=== PATIENT | female | born 1980 | race Two or more races ===

== ENCOUNTER 2018-08-11 16:30 | Emergency (ER) | payer OTHER ==
--- NOTE | 2018-08-11 16:55 | ER Document Report ---
ED Medical Screen (RME) - General Chief Complaint: Vag Bleeding, +preg <12wks Stated Complaint: FALL/VAGINAL BLEEDING Time Seen by Provider: 08/11/18 16:50 Notes: 38-year-old female patient to the emergency department chief complaint of vaginal bleeding. Patient thinks that she is maybe 2-3 months . Fell off a ladder had approximately 2 feet high. Landed on her buttocks. Began having vaginal bleeding and cramping after that. Denies any other injuries at this time. Patient has been 6 times with 6 children. I have greeted and performed a rapid initial assessment of this patient. A comprehensive ED assessment and evaluation of the patient, analysis of test results and completion of the medical decision making process will be conducted by additional ED providers. TRAVEL OUTSIDE OF THE [place] IN LAST 30 DAYS: No - HPI Onset: Just prior to arrival Severity: Moderate - Related Data Allergies/Adverse Reactions: No Known Allergies Allergy (Unverified 08/11/18 16:34) Review of Systems - Review of Systems Notes: Review of systems positive for the following: Vaginal bleeding and cramping, positive Physical Exam - Vital signs Vitals: Temp Pulse Resp BP Pulse Ox 98.5 F 101 H 20 122/61 100 08/11/18 16:36 08/11/18 16:36 08/11/18 16:36 08/11/18 16:36 08/11/18 16:36 Interpretation: Normal - General General appearance: Appears well, Alert - HEENT Head: Normocephalic, Atraumatic Eyes: Normal Pupils: PERRL - Respiratory Respiratory status: No respiratory distress Chest status: Nontender Breath sounds: Normal Chest palpation: Normal - Cardiovascular Rhythm: Regular Heart sounds: Normal auscultation Murmur: No - Abdominal Inspection: Normal Distension: No distension Bowel sounds: Normal Tenderness: Nontender Organomegaly: No organomegaly - Back Back: Normal, Nontender - Extremities General upper extremity: Normal inspection, Nontender, Normal color, Normal ROM, Normal temperature General lower extremity: Normal inspection, Nontender, Normal color, Normal ROM, Normal temperature, Normal weight bearing. No: Treasure's sign - Neurological Neuro grossly intact: Yes Cognition: Normal Orientation: AAOx4 Dalton Coma Scale Eye Opening: Spontaneous Jhony Coma Scale Verbal: Oriented Jhony Coma Scale Motor: Obeys Commands Jhony Coma Scale Total: 15 Speech: Normal Motor strength normal: LUE, RUE, LLE, RLE Sensory: Normal - Psychological Associated symptoms: Normal affect, Normal mood - Skin Skin Temperature: Warm Skin Moisture: Dry Skin Color: Normal Course - Vital Signs Vital signs: Temp Pulse Resp BP Pulse Ox 98.5 F 101 H 20 122/61 100 08/11/18 16:36 08/11/18 16:36 08/11/18 16:36 08/11/18 16:36 08/11/18 16:36
[2018-08-11 18:37] LABS: AMORPHOUS SEDIMENT,URINE TRACE /HPF; APPEARANCE,URINE CLOUDY; BILIRUBIN,URINE NEGATIVE (NEGATIVE); COLOR,URINE YELLOW; GLUCOSE, URINE NEGATIVE (NEGATIVE); KETONES,URINE NEGATIVE (NEGATIVE); LEUKOCYTE ESTERASE,URINE NEGATIVE (NEGATIVE); NITRITE,URINE NEGATIVE (NEGATIVE); PROTEIN,URINE NEGATIVE (NEGATIVE); URINE SPECIFIC GRAVITY 1.019
--- NOTE | 2018-08-11 21:48 | ER Document Report ---
ED General - General Chief Complaint: Vag Bleeding, +preg <12wks Stated Complaint: FALL/VAGINAL BLEEDING Time Seen by Provider: 08/11/18 16:50 Notes: 38-year-old female presents to the emergency department after a fall off a ladder from about 4 feet with subsequent vaginal bleeding. She states she fell and landed on her butt and shortly after went to the bathroom and noticed that she had passed some clots. She states that she was previously in May had a positive test and thought she may be having a miscarriage. She previously had an IUD so she states her periods are irregular. She denies hitting her head or loss of consciousness. She denies any back or neck pain. She complains of abdominal cramping that is since resolved. She denies any other symptoms. TRAVEL OUTSIDE OF THE [place] IN LAST 30 DAYS: No - Related Data Allergies/Adverse Reactions: No Known Allergies Allergy (Unverified 08/11/18 16:34) Past Medical History - General Last Menstrual Period: 06/07/18 - Social History Smoking Status: Current Every Day Smoker Chew tobacco use (# tins/day): No Frequency of alcohol use: Rare Drug Abuse: Marijuana Family History: None Patient has suicidal ideation: No Patient has homicidal ideation: No Renal/ Medical History: Denies: Hx Peritoneal Dialysis Review of Systems - Review of Systems Constitutional: See HPI EENT: No symptoms reported Cardiovascular: No symptoms reported Respiratory: No symptoms reported Gastrointestinal: See HPI Genitourinary: No symptoms reported Female Genitourinary: No symptoms reported Musculoskeletal: See HPI Skin: No symptoms reported Hematologic/Lymphatic: No symptoms reported Neurological/Psychological: No symptoms reported Physical Exam - Vital signs Vitals: Temp Pulse Resp BP Pulse Ox 98.5 F 101 H 20 122/61 100 08/11/18 16:36 08/11/18 16:36 08/11/18 16:36 08/11/18 16:36 08/11/18 16:36 - Notes Notes: Reviewed vital signs and nursing note as charted by RN. CONSTITUTIONAL: Well-appearing, well-nourished, acting appropriately for age HEAD: Normocephalic, atraumatic, no swelling EYES: PERRL, Conjunctivae clear, no drainage, EOMI, no scleral icterus ENT: External ears without lesions, External auditory canal is patent, airway patent, mucous membranes pink and moist NECK: Supple, no cervical midline bony tenderness CARD: Regular rate and rhythm, no murmurs, no rubs, no gallops, capillary refill < 2 seconds, symmetric pulses RESP: The lungs are clear to auscultation bilaterally, no wheezing, no rales, no rhonchi. Respiratory rate and effort are normal, normal chest excursion. No respiratory distress, no retractions, no stridor, no nasal flaring, no accessory muscle use. ABD/GI: Normal bowel sounds, non-distended, soft, non-tender, no rebound, no guarding, no palpable organomegaly EXT: Normal ROM in all joints, non-tender to palpation, no effusions, no edema SKIN: Normal color for age and race, warm, dry, good turgor, no acute lesions noted NEURO: No facial asymmetry, moves all extremities equally, motor and sensory function intact Course - Re-evaluation Re-evalutation: 08/11/18 21:51 Very well-appearing 38-year-old female presents to the emergency department for vaginal bleeding after a fall. She thought she was she had a positive test in May. She was previously on the IUD and as such has irregular periods so she is unclear. She was concerned that she may be having a miscarriage. Urine hCG was negative. Abdomen was completely soft. No spinal midline tenderness or cervical midline tenderness. Patient states that she may be on her. But she is unclear. She denies any abdominal pain or any current symptoms. I recommended a transvaginal ultrasound but patient declined. I explained to her that although she looks well and I have low concern for internal injury it would be prudent just to make sure considering her injury and the timing of the bleeding. She still declined. Patient was aware of the risks. I gave her strict return precautions and what to look out for if there were any concerns for possible internal bleeding. Patient is safe and stable to discharge home. - Vital Signs Vital signs: Temp Pulse Resp BP Pulse Ox 98.5 F 101 H 20 122/61 100 08/11/18 16:36 08/11/18 16:36 08/11/18 16:36 08/11/18 16:36 08/11/18 16:36 - Laboratory Laboratory results interpreted by me: 08/11/18 18:21 Urine Blood MODERATE H Urine Urobilinogen 4.0 H Discharge - Discharge Clinical Impression: Vaginal bleeding Fall Qualifiers: Encounter type: initial encounter Qualified Code(s): W19.XXXA - Unspecified fall, initial encounter Condition: Good Disposition: HOME, SELF-CARE Additional Instructions: You were seen in the emergency department this evening for vaginal bleeding after a fall. It is unclear why this happened and why you are passing clots. It could be that it was a coincidence he started your. Or it could be due to a little bit of internal trauma causing the bleeding. It is important to look out for signs of internal bleeding. The signs include dizziness and lightheadedness, looking pale, a fast heart rate, or extreme thirst. If you have any of the signs please immediately return to the emergency department as you will need a scan of your abdomen. Also, if you develop severe abdominal pain please return to the emergency department.
[2018-08-11 22:00] VITALS: BP 122/55
== END 2018-08-11 21:59 | disposition home or self-care (01) ==
LOC: ER 16:30
DX: Z32.02 Encounter for pregnancy test, result negative (principal); N93.9 Abnormal uterine and vaginal bleeding, unspecified; W11.XXXA Fall on and from ladder, initial encounter; F17.200 Nicotine dependence, unspecified, uncomplicated
CPT/HCPCS: 36415; 81001; 84702; 86900; 86901; 99284